=== PATIENT | female | born 1945 ===

== ENCOUNTER 2020-03-06 06:00 | Outpatient (RCR) | payer MEDICARE, SELFPAY | END 2020-03-16 23:59 | disposition home or self-care (01) | LOC: GPT 06:00 | PROVIDERS: PCP Internal Medicine; Referring Provider Physician Assistant; Visit Provider Physician Assistant | DX: Z47.1 Aftercare following joint replacement surgery (principal); Z96.611 Presence of right artificial shoulder joint | CPT/HCPCS: 97110; 97140; 97161; 97530; G0283 ==

== ENCOUNTER 2020-03-17 06:00 | Outpatient (RCR) | payer MEDICARE, SELFPAY | END 2020-04-15 23:59 | disposition home or self-care (01) | LOC: GPT 06:00 | PROVIDERS: PCP Internal Medicine; Visit Provider Physician Assistant | DX: Z47.1 Aftercare following joint replacement surgery (principal); Z96.611 Presence of right artificial shoulder joint | CPT/HCPCS: 97032; 97110; 97530; G0283 ==

== ENCOUNTER 2022-03-17 06:00 | Outpatient (RCR) | payer MEDICARE, SELFPAY | END 2022-04-15 23:59 | disposition home or self-care (01) | LOC: GPT 06:00 | PROVIDERS: PCP Internal Medicine; Visit Provider Physician Assistant | DX: Z96.612 Presence of left artificial shoulder joint (principal) | CPT/HCPCS: 97110; 97140; 97162 ==

== ENCOUNTER 2022-04-16 06:00 | Outpatient (RCR) | payer MEDICARE, SELFPAY | END 2022-05-16 23:59 | disposition home or self-care (01) | LOC: GPT 06:00 | PROVIDERS: PCP Internal Medicine; Visit Provider Physician Assistant | DX: Z96.612 Presence of left artificial shoulder joint (principal) | CPT/HCPCS: 97110; 97112; 97140; 97530 ==

== ENCOUNTER 2022-05-17 06:00 | Outpatient (RCR) | payer MEDICARE, SELFPAY | END 2022-05-21 23:59 | disposition home or self-care (01) | LOC: GPT 06:00 | PROVIDERS: PCP Internal Medicine; Visit Provider Physician Assistant | DX: Z96.612 Presence of left artificial shoulder joint (principal) | CPT/HCPCS: 97110; 97535 ==

== ENCOUNTER 2022-06-22 06:00 | Outpatient (RCR) | payer MEDICARE, SELFPAY | END 2022-07-14 23:59 | disposition home or self-care (01) | LOC: GPT 06:00 | PROVIDERS: PCP Internal Medicine; Visit Provider Physician Assistant | DX: M25.561 Pain in right knee (principal); G89.29 Other chronic pain | CPT/HCPCS: 97110; 97112; 97140; 97161; 97530 ==

== ENCOUNTER 2022-07-15 06:00 | Outpatient (RCR) | payer MEDICARE, SELFPAY | END 2022-08-06 23:59 | disposition home or self-care (01) | LOC: GPT 06:00 | PROVIDERS: PCP Internal Medicine; Visit Provider Physician Assistant | DX: M25.561 Pain in right knee (principal); G89.29 Other chronic pain | CPT/HCPCS: 97110; 97112; 97140; 97530 ==

== ENCOUNTER 2023-01-25 06:00 | Outpatient (RCR) | payer MEDICARE, SELFPAY | END 2023-02-13 23:59 | disposition home or self-care (01) | LOC: GPT 06:00 | PROVIDERS: PCP Internal Medicine; Visit Provider Orthopaedic Surgery | DX: M17.11 Unilateral primary osteoarthritis, right knee (principal) | CPT/HCPCS: 97110; 97112; 97140; 97161; 97530 ==

== ENCOUNTER 2023-02-14 06:00 | Outpatient (RCR) | payer MEDICARE, SELFPAY | END 2023-03-16 23:59 | disposition home or self-care (01) | LOC: GPT 06:00 | PROVIDERS: PCP Internal Medicine; Visit Provider Orthopaedic Surgery | DX: M17.11 Unilateral primary osteoarthritis, right knee (principal) | CPT/HCPCS: 97110; 97112; 97140; 97530 ==

== ENCOUNTER → 2023-02-22 11:13 | Outpatient (BNVA) | payer MEDICARE, SELFPAY | PROVIDERS: PCP Internal Medicine; Visit Provider Nurse Practitioner Family | DX: R30.9 Painful micturition, unspecified (principal) | CPT/HCPCS: 81003 ==

== ENCOUNTER 2023-03-17 06:00 | Outpatient (RCR) | payer MEDICARE, SELFPAY | END 2023-04-15 23:59 | disposition home or self-care (01) | LOC: GPT 06:00 | PROVIDERS: PCP Internal Medicine; Visit Provider Orthopaedic Surgery | DX: M17.11 Unilateral primary osteoarthritis, right knee (principal) | CPT/HCPCS: 97032; 97110 ==

== ENCOUNTER 2023-05-13 06:00 | Outpatient (RCR) | payer MEDICARE, SELFPAY | END 2023-05-16 23:59 | disposition home or self-care (01) | LOC: GPT 06:00 | PROVIDERS: Visit Provider Internal Medicine | DX: R26.9 Unspecified abnormalities of gait and mobility (principal); R26.2 Difficulty in walking, not elsewhere classified; M25.661 Stiffness of right knee, not elsewhere classified | CPT/HCPCS: 97110; 97161 ==

== ENCOUNTER 2023-05-17 06:00 | Outpatient (RCR) | payer MEDICARE, SELFPAY | END 2023-06-16 23:59 | disposition home or self-care (01) | LOC: GPT 06:00 | PROVIDERS: Visit Provider Internal Medicine | DX: R26.2 Difficulty in walking, not elsewhere classified (principal); R26.9 Unspecified abnormalities of gait and mobility | CPT/HCPCS: 97110; 97140; 97530 ==

== ENCOUNTER 2023-06-17 06:00 | Outpatient (RCR) | payer MEDICARE, SELFPAY | END 2023-07-02 23:59 | disposition home or self-care (01) | LOC: GPT 06:00 | PROVIDERS: Visit Provider Internal Medicine | DX: M25.561 Pain in right knee (principal); M25.361 Other instability, right knee | CPT/HCPCS: 97110; 97530 ==

== ENCOUNTER 2024-11-14 05:00 | Outpatient (RCR) | payer MEDICARE, SELFPAY | END 2024-12-14 23:59 | disposition home or self-care (01) | LOC: GPT 05:00 | PROVIDERS: Visit Provider Orthopaedic Surgery | DX: M17.12 Unilateral primary osteoarthritis, left knee (principal) | CPT/HCPCS: 97110; 97140; 97161 ==

== ENCOUNTER 2024-12-15 05:00 | Outpatient (RCR) | payer MEDICARE, SELFPAY | END 2025-01-14 23:59 | disposition home or self-care (01) | LOC: GPT 05:00 | PROVIDERS: Visit Provider Orthopaedic Surgery | DX: M17.12 Unilateral primary osteoarthritis, left knee (principal) | CPT/HCPCS: 97110; 97140; 97530 ==